=== PATIENT | female | born 1955 | race Caucasian/White ===

== ENCOUNTER 2018-06-13 09:01 | Outpatient (CLI) | payer MEDICARE, OTHER | END 2018-06-13 09:02 | disposition home or self-care (01) | LOC: BICMAMMO 09:01 | PROVIDERS: ATTEND Family Medicine | DX: Z12.31 Encounter for screening mammogram for malignant neoplasm of breast (principal); R92.1 Mammographic calcification found on diagnostic imaging of breast | CPT/HCPCS: 77063; 77067 ==

== ENCOUNTER 2019-12-31 08:43 | Day surgery (SDC) | payer MEDICARE, OTHER ==
[2019-12-28 09:54] VITALS: BMI 26.4
--- NOTE | 2019-12-31 08:53 | HP ---
A 64-year-old female. The patient was seen in [facility] emergency room medical record #[id number], and she was more recently seen at [facility], [facility] last week, the reports of which I do not have. A 64-year-old female seen at [facility] on 12/10/2019 and last week at [facility] Emergency Room for right upper quadrant epigastric pain, back radiation. She has had a CAT scan at [facility] revealing gallstones and ultrasound she reports (I do not have the report) of gallstones. [facility] 3 weeks ago revealed that she had a high INR. She has not seen Dr. Schroeder to adjust her Coumadin since that time. She takes 6 mg a day. Liver function tests were normal. The patient has atrial fibrillation. She is followed by Dr. Flaco Gonzales. She had a cardiac catheterization 6-8 weeks ago, revealed no obstructive lesion. She has an appointment to see him this week. The patient is clear from a cardiac standpoint to proceed with operation. She has ongoing pain and tenderness going on for several weeks. This is constant. ALLERGIES: PENICILLIN, IODINE. TOBACCO: 5-6 cigarettes a day. ALCOHOL: Rarely. MEDICATIONS: 1. Diltiazem 30 mg 4 times a day. 2. Metformin 500 mg b.i.d. 3. Lisinopril 5 mg a day. 4. Jantoven mg a day. 5. Atorvastatin 80 mg a day. 6. Aspirin 81 mg a day. 7. Coumadin 6 mg a day. 8. Nitrofurantoin b.i.d. 9. Acetaminophen with codeine q.4 hours p.r.n. PAST SURGICAL HISTORY: 1. [place] teeth. 2. Colonoscopy 2 years ago normal. 3. Cardiac catheterization 6-8 weeks ago at [place] [facility], normal, no significant disease. 4. Atrial fibrillation. 5. Diabetes. 6. Hypertension. 7. Tobacco use. REVIEW OF SYSTEMS: Noncontributory, 10 points, otherwise. FAMILY HISTORY: Noncontributory. PHYSICAL EXAMINATION: VITAL SIGNS: 148 pounds, 62 inches, 27 BMI, 141/75, 59, 97.5 degrees. HEAD, EARS, EYES, NOSE, AND THROAT: Unremarkable. LUNGS: Clear to auscultation. CARDIAC: Irregular, regular. ABDOMEN: Soft. Tenderness in the right upper quadrant with guarding. EXTREMITIES: Unremarkable. No ankle edema. NEUROLOGICAL: Intact. No focal deficit. No lymphadenopathy in the neck, axilla, or groins. Cranial nerves intact. ASSESSMENT AND PLAN: 1. Cholecystitis, cholelithiasis. She has been to 2 emergency rooms over the last 3 weeks. She has ongoing pain and tenderness. She has cholecystitis. She is on Coumadin, took a dose this morning. Would recommend she hold her Coumadin, eat leafy green vegetables, and plan laparoscopic cholecystectomy later this week. 2. Atrial fibrillation. She had a cardiac catheterization 6-8 weeks ago and is stable from a cardiac standpoint to proceed without further evaluation. 3. Chronic anticoagulation. Hold her Coumadin. Check her INR the morning of operation. 4. Diabetes mellitus. 5. Hypertension. 6. Tobacco use. Job ID: [id number]
[2019-12-31] MEDS ORDERED: Acetaminophen 500 MG TAB ONE (09:22)
[2019-12-31] MEDS ORDERED: Levofloxacin 500 mg/D5W 100 ml Premix Bag ONE (09:22)
[2019-12-31] MEDS ORDERED: Ketorolac Tromethamine 30 MG/ML VIAL ONE (09:22)
[2019-12-31 09:57] LABS: INR-International Normal Ratio 0.9; Prothrombin Time 12.3 SEC (12.0-14.7)
[2019-12-31] MEDS ORDERED: Bupivacaine PF 0.5% 30 ML VIAL ONE (10:21)
[2019-12-31] MEDS ORDERED: Lidocaine 1% w/Epinephrine 1:100K 20 ML VIAL ONE (10:21)
[2019-12-31] MEDS ORDERED: Rocuronium Bromide 10 MG/ML (10ML VIAL) ONE (10:34)
[2019-12-31] MEDS ORDERED: PROPOFOL 200 MG/20 ML VIAL ONE (10:34)
[2019-12-31] MEDS ORDERED: Ondansetron PF 4 MG/2 ML Vial ONE ×2 (10:34→12:35)
[2019-12-31] MEDS ORDERED: Dexamethasone 20 MG/5 ML VIAL ONE (10:34)
[2019-12-31] MEDS ORDERED: Glycopyrrolate 0.2 MG/ML 5 ML SYRINGE ONE (10:34)
[2019-12-31] MEDS ORDERED: Lidocaine 1% PF 5 ML VIAL ONE (10:34)
[2019-12-31] MEDS ORDERED: Labetalol HCl 100 MG/20 ML VIAL ONE ×2 (10:34→12:33)
[2019-12-31] MEDS ORDERED: Fentanyl 100 MCG/2 ML VIAL ONE ×2 (11:22→12:39)
[2019-12-31] MEDS ORDERED: SUGAMMADEX SODIUM 200 MG/2 ML VIAL ONE (12:25)
[2019-12-31] MEDS ORDERED: Promethazine HCl 25 MG/ML VIAL ONE (13:06)
--- NOTE | 2019-12-31 13:11 | OP ---
DATE OF PROCEDURE: 12/31/2019 PREOPERATIVE DIAGNOSES: Chronic cholecystitis, cholelithiasis, umbilical hernia. POSTOPERATIVE DIAGNOSES: Chronic cholecystitis, cholelithiasis, umbilical hernia. PROCEDURE PERFORMED: Laparoscopic video cholecystectomy, takedown of [id number] adhesions, umbilical hernia repair without mesh open. ANESTHESIA: General, local 0.5% Marcaine 30 mL mixed with 1% Xylocaine with epinephrine 20 mL total volume used. DESCRIPTION OF PROCEDURE: The patient was taken to the operating room where under general anesthesia, abdomen was prepared with ChloraPrep and draped in routine fashion. Local anesthetic mixture was infiltrated in the skin and subcutaneous tissue about each port site. Infraumbilical incision was made. Pneumoperitoneum to 15 mmHg obtained with a Veress needle, replaced with a 5 port, inserted through the umbilical hernia defect, a video laparoscope was inserted. Right subxiphoid incision was made, 11 port placed. Right subcostal incision was made at midclavicular and anterior axillary line, 5 port was placed. Ygef-Kfoi-Nmiqny adhesion was taken down the lateral reflection of the liver. Fundus of the gallbladder was grasped at the cephalad. Infundibulum grasped and reflected laterally. Cystic artery and duct dissected free, critical view obtained. Cystic artery and duct double clipped proximally, divided and gallbladder dissected free from the liver bed obtaining good hemostasis prior to division of the final peritoneal attachments. Gallbladder and stones removed, submitted to Pathology. Good hemostasis was ensured with cautery and clips. Good hemostasis was ensured. Irrigant and pneumoperitoneum were evacuated. All instruments were removed. An infraumbilical incision was made and enlarged, carried down through skin and subcutaneous tissue. An umbilical hernia defect identified, dissected free of hernia sac, excised, discarded. Fascia dissected free and fascia approximated [id number] fashion with interrupted suture of 0 PDS pop-offs. Skin and subcutaneous tissues irrigated. Skin approximated to the fascia with the underlying subcutaneous tissue to reform the umbilicus. Subcutaneous tissue was approximated with 3-0 Monocryl, skin with subdermal 4-0 Monocryl and [place] glue applied. The patient tolerated the procedure well. Job ID: [id number]
[2019-12-31] MEDS ORDERED: hydrALAZINE 20 MG/ML VIAL ONE (13:18)
[2019-12-31] MEDS ORDERED: HYDROcodone/Acetaminophen 5/325 mg Tablet ONE ×2 (14:21→15:00)
== END 2019-12-31 15:15 | disposition home or self-care (01) ==
LOC: SDC 08:43
PROVIDERS: ATTEND Specialist
PROC: 0WQF0ZZ Repair Abdominal Wall, Open Approach (ICD-10-PCS; principal; 2019-12-31)
PROC: 0FT44ZZ Resection of Gallbladder, Percutaneous Endoscopic Approach (ICD-10-PCS; 2019-12-31)
DX: K80.10 Calculus of gallbladder with chronic cholecystitis without obstruction (principal); K42.9 Umbilical hernia without obstruction or gangrene; K66.0 Peritoneal adhesions (postprocedural) (postinfection); I48.91 Unspecified atrial fibrillation; E78.00 Pure hypercholesterolemia, unspecified; E11.9 Type 2 diabetes mellitus without complications; F17.210 Nicotine dependence, cigarettes, uncomplicated; Z79.01 Long term (current) use of anticoagulants; Z79.82 Long term (current) use of aspirin; Z79.84 Long term (current) use of oral hypoglycemic drugs; Z79.899 Other long term (current) drug therapy; Z88.0 Allergy status to penicillin; Z91.041 Radiographic dye allergy status; Z91.048 Other nonmedicinal substance allergy status
CPT/HCPCS: 47562; 49585; 85610; J2405; J2550; J3010; 36415; 88304; J0360; J1100; J1885; J1956; J2001; J2704; S0020

== ENCOUNTER 2021-03-10 09:11 | Outpatient (CLI) | payer MEDICARE, OTHER ==
[2021-03-11 01:53] LABS: SARS-CoV-2 PCR by NAA Not Detected (NotDetected)
== END 2021-03-10 09:12 | disposition home or self-care (01) ==
LOC: LABBT 09:11
PROVIDERS: ATTEND Internal Medicine Gastroenterology
DX: Z01.812 Encounter for preprocedural laboratory examination (principal); K92.2 Gastrointestinal hemorrhage, unspecified; K63.5 Polyp of colon; Z20.822 Contact with and (suspected) exposure to COVID-19
CPT/HCPCS: U0003; U0005

== ENCOUNTER 2021-03-13 05:55 | Day surgery (SDC) | payer MEDICARE, OTHER ==
[2021-03-12 11:25] VITALS: BMI 25.4
[2021-03-13] MEDS ORDERED: PROPOFOL 200 MG/20 ML VIAL ONE (07:39)
== END 2021-03-13 09:20 | disposition home or self-care (01) ==
LOC: SDC 05:55
PROVIDERS: ATTEND Internal Medicine Gastroenterology
PROC: 0DBL8ZX Excision of Transverse Colon, Via Natural or Artificial Opening Endoscopic, Diagnostic (ICD-10-PCS; principal; 2021-03-13)
DX: D12.3 Benign neoplasm of transverse colon (principal); K57.30 Diverticulosis of large intestine without perforation or abscess without bleeding; K64.4 Residual hemorrhoidal skin tags; I10 Essential (primary) hypertension; E78.5 Hyperlipidemia, unspecified; I48.91 Unspecified atrial fibrillation; J44.9 Chronic obstructive pulmonary disease, unspecified; F17.210 Nicotine dependence, cigarettes, uncomplicated; E11.9 Type 2 diabetes mellitus without complications; Z86.010 Personal history of colon polyps; Z79.01 Long term (current) use of anticoagulants; Z79.82 Long term (current) use of aspirin; Z79.84 Long term (current) use of oral hypoglycemic drugs; Z79.899 Other long term (current) drug therapy; Z88.0 Allergy status to penicillin; Z91.041 Radiographic dye allergy status; Z91.048 Other nonmedicinal substance allergy status
CPT/HCPCS: 88305; J2704